=== PATIENT | female | born 1975 | race Caucasian/White ===

== ENCOUNTER 2018-12-20 06:44 | Inpatient (IN) ==
[2018-12-13 12:24] LABS: Appearance,Urine CLEAR; Bacteria,Urine 0 /hpf (0); Bilirubin,Urine NEG (NEG); Color,Urine YELLOW; Culture Indicated,Urine NO; Glucose,Urine (UA) NEGATIVE (NEG); Ketones,Urine NEG (NEG); Leukocyte Esterase,Urine NEG /uL (NEG); Nitrate,Urine NEG (NEG); Protein,Urine NEG (NEG); Urine Blood >=1.0 mg/dL (<0.03); Urine RBC 52 /hpf (0-1); Urine Squamous Epithelial Cell 0 /hpf (0-4); Urine WBC 1 /hpf (0-4); Urobilinogen,Urine NEG (NEG)
[2018-12-13 12:49] LABS: Basophils # (Auto) 0 K/mcL (0.0-0.3); Basophils % (Auto) 0.5 % (0.0-2.0); Eosinophils # (Auto) 0 K/mcL (0.0-0.7); Eosinophils % (Auto) 0.7 % (0.0-7.0); Granulocytes % (Auto) 52.3 % (38.0-78.0); Hematocrit 36.9 % (36.0-48.0); Hemoglobin 12.4 g/dL (12.0-15.0); Lymphocytes # (Auto) 1.8 K/mcL (1.5-4.8); Lymphocytes % (Auto) 37.4 % (15.5-49.0); Mean Corpuscular HGB Conc 33.6 g/dL (31.0-36.0); Mean Platelet Volume 7.7 fL (7.4-10.4); Monocytes # (Auto) 0.4 K/mcL (0.1-0.9); Monocytes % (Auto) 9.1 % (1.0-12.0); Platelet Count 273 K/mcL (140-440); Red Cell Distribution Width 12.4 % (11.5-14.5); WBC 4.9 K/mcL (4.5-11.0)
[2018-12-13 13:07] LABS: Blood Urea Nitrogen 16 mg/dl (6-20); Calcium 8.5 mg/dl (8.6-10.4); Carbon Dioxide 23 mmol/L (22-30); Chloride 104 mmol/L (96-108); Glomerular Filtration Rate 118; Glucose 90 mg/dL (70-105); Potassium 4.5 mmol/L (3.3-5.1); Sodium 137 mmol/L (133-145)
[2018-12-13 13:53] LABS: Estimated Average Glucose(eAG) 91 mg/dL; Hemoglobin A1C 4.8 % HGB (4.0-6.0)
[~2018-12-20 06:44] MED LIST: 0.9 % SODIUM CHLORIDE 9 ML, KETOROLAC 30 MG, ROPIVACAINE HCL/PF 49.5 ML, EPINEPHrine 0.... IJ SCH; CELECOXIB 200 MG CAPSULE PO SCH; PREGABALIN 75 MG CAPSULE PO SCH; ceFAZolin 2 GM in DEXTROSE 5% IN WATER 50 ML IV SCH; oxyCODONE 10 MG TAB.ER.12H PO SCH
[2018-12-20] MEDS ORDERED: PHENYLEPHRINE 10 MG/ML VIAL IV ONE (11:57)
[2018-12-20] MEDS ORDERED: MIDAZOLAM 2 MG/2 ML VIAL IV ONE (11:57)
[2018-12-20] MEDS ORDERED: PROPOFOL 200 MG/20 ML VIAL IV ONE (11:57)
[2018-12-20] MEDS ORDERED: DEXAMETHASONE 10 MG/ML VIAL IV ONE (11:57)
[2018-12-20] MEDS ORDERED: ROPIVACAINE HCL/PF 20 ML VIAL IJ ONE (11:57)
[2018-12-20] MEDS ORDERED: KETAMINE 100 MG/ML ML IV ONE (11:57)
[2018-12-20] MEDS ORDERED: LIDOCAINE HCL/PF 100 MG/5 ML SYRINGE IV ONE (11:57)
[2018-12-20] MEDS ORDERED: TRANEXAMIC ACID 1,000 MG/10 ML VIAL IV ONE ×2 (11:57→13:09)
[2018-12-20] MEDS ORDERED: GLYCOPYRROLATE 0.2 MG/ML VIAL IV ONE (11:57)
[2018-12-20] MEDS ORDERED: ONDANSETRON 4 MG/2 ML VIAL IV ONE (11:57)
[2018-12-20] MEDS ORDERED: BENZOCAINE/MENTHOL 1 LOZENGE PO PRN (13:09)
[2018-12-20] MEDS ORDERED: BISACODYL 10 MG SUPP.RECT PR PRN (13:09)
[2018-12-20] MEDS ORDERED: POLYETHYLENE GLYCOL 3350 17 GM PACKET PO PRN (13:09)
[2018-12-20] MEDS ORDERED: MAGNESIUM HYDROXIDE 30 ML ORAL.SUSP PO PRN (13:09)
[2018-12-20] MEDS ORDERED: FLEETS ADULT ENEMA PR PRN (13:09)
[2018-12-20] MEDS ORDERED: ONDANSETRON 4 MG/2 ML VIAL IV PRN ×2 (13:09→13:10)
[2018-12-20] MEDS ORDERED: HYDROmorphone 2 MG/ML VIAL IV PRN ×2 (13:09→13:10)
--- NOTE | 2018-12-20 13:09 | Brief Operative Note ---
Date of procedure: 12/20/18 Pre-op diagnosis: Right knee DJD Post-op diagnosis: same Procedure: Right robotic assisted total knee arthroplasty Grafts/Implants: Yes ([place] Triathlon CR 3 femur, 3 tibia, 10mm insert, 33 patella) Anesthesia: spinal, GLMA Findings: severe patellofemoral arthritis with maltracking Complications: none Surgeon: Chalo Headley Auto Glass Technician: Carrington Mckinnon Estimated blood loss (cc): 30 Specimens Removed/Pathology: none sent Condition: stable Disposition: PACU
[2018-12-20] MEDS ORDERED: diphenhydrAMINE 50 MG/ML VIAL IV PRN (13:10)
[2018-12-20] MEDS ORDERED: METOPROLOL TARTRATE 5 MG/5 ML VIAL IV PRN (13:10)
[2018-12-20] MEDS ORDERED: ATROPINE SULFATE 0.4 MG/ML VIAL IV PRN (13:10)
[2018-12-20] MEDS ORDERED: NALOXONE HCL 0.4 MG/ML VIAL IV PRN (13:10)
[2018-12-20] MEDS ORDERED: METHOCARBAMOL 1,000 MG/10 ML VIAL IV PRN (13:10)
[2018-12-20] MEDS ORDERED: ePHEDrine 50 MG/ML AMPUL IV PRN (13:10)
[2018-12-20] MEDS ORDERED: PROMETHAZINE 25 MG/ML VIAL IV PRN (13:10)
[2018-12-20] MEDS ORDERED: FLUMAZENIL 0.1 MG/ML ML IV PRN (13:10)
[2018-12-20] MEDS ORDERED: ACETAMINOPHEN 1,000 MG/100 ML BOTTLE IV ONE (13:10)
[2018-12-20] MEDS ORDERED: fentaNYL 100 MCG/2 ML VIAL IV PRN (13:10)
[2018-12-20] MEDS ORDERED: MEPERIDINE 25 MG/ML SYRINGE IV PRN (13:10)
[2018-12-20] MEDS ORDERED: IPRATROPIUM/ALBUTEROL 3 ML AMPUL.NEB NEB PRN (13:10)
[2018-12-20] MEDS ORDERED: LACTATED RINGERS 1,000 ML IV SCH (13:15)
--- NOTE | 2018-12-20 14:04 | Operative Note ---
DATE OF OPERATION: 12/20/2018 PREOPERATIVE DIAGNOSIS: Right knee severe osteoarthritis. POSTOPERATIVE DIAGNOSIS: Right knee severe osteoarthritis. PROCEDURE PERFORMED: Right robotic-assisted total knee arthroplasty placing a [place] Triathlon size 3 cruciate retaining femoral component, size 3 tibial baseplate, X3 tibial insert with a 33 mm patellar button. SURGEON: Chalo Headley MD PREPARATOR: Zak Mckinnon PA-C. The PA's assistance was required for the safe and efficient completion of the entire case. This provider's expertise and technical skill were required throughout the case. The PA assisted with preoperative coordination, intraoperative retraction, wound closure, dressing and splint application, as well as postoperative documentation and care coordination. ANESTHESIA: Spinal plus general. DRAINS: None. SPECIMENS: Bone cuts, which were discarded. BLOOD LOSS: 30 mL COMPLICATIONS: None. POSTOPERATIVE CONDITION: Stable. INDICATIONS FOR SURGERY: This is a 43-year-old female who has a remote history of trauma to her knee with a ligament reconstruction and multiple surgeries. She has had progressively worsening right knee pain making it unable for her to walk any significant distance. This was unresponsive to conservative treatment including injections and anti-inflammatories. FINDINGS AT SURGERY: She had severe [id number] patellofemoral osteoarthritis with patellar maltracking. Post-implantation showed satisfactory limb alignment, patellar tracking, and joint stability. PROCEDURE IN DETAIL: The patient had been seen preoperatively and informed consent had been obtained after discussion of risks and benefits of surgery. Risks including, but not limited to, bleeding; infection, possibly requiring implant removal and prolonged IV antibiotics; injury to nerves, blood vessels, other surrounding structures; anesthetic risks; incomplete or no resolution of symptoms; stiffness; swelling; instability; pain; DVT and pulmonary embolus risks; and the possibility of needing further revision surgery, this being particularly high given her young age. She understood these risks and wished to proceed. Correct operative site was marked. The patient was given spinal anesthesia. She was then taken to the operating room and LMA general given. The right lower extremity was carefully prepped and draped in normal sterile fashion and a timeout was performed verifying patient name, operative site, and plan. Esmarch was used to exsanguinate the extremity and tourniquet was inflated. Her previous scar was far medial so this did not afford us adequate exposure, so we went and after placing Ioban used a midline incision with a scalpel through skin and subcutaneous tissue. IrriSept was irrigated and then a medial parapatellar arthrotomy made. Subperiosteal exposure was done of the anterior medial proximal tibia. Anterior horns of the menisci were removed. ACL was transected. Femoral and tibial checkpoints were placed. Two stab incisions were made over the femur and two over the tibia and bicortical pins placed, and the arrays were connected. Hip center of rotation was verified and then a green probe used to identify the medial and lateral malleolus and did double checks of our checkpoints. Blue probe was then used to do our mapping. A rongeur was used to remove osteophytes and then spoons were used at 90 degrees and 15 degrees to get our flexion, extension gaps. She was loose medial and tight lateral. We did end up doing I believe 2 degrees of valgus on the tibia and I believe 1 or so of valgus on the femur. We did eventually end up with 17 mm gaps laterally in flexion and extension and medially in extension with 18 mm gap in flexion. We then verified our patellar tracking and then went ahead and used the robotic arm to make our bone cuts. We then sized the tibia to a 3, which was externally rotated as bone coverage would allow. We pinned this into place and used a boss reamer and keel punch to prepare and then a keeled tibial trial was placed. Femur was elevated and a curved osteotome used to remove posterior osteophytes and then a femoral trial was placed. This was pinned into place and the peg holes drilled. We then used a 9 insert trial which was able to be put in without too much difficulty. We checked our extension and we were about 5 to 7 degrees short of full; however, I could correct it down to full. We then measured her patella. Freehand resection was done leaving us with 12 mm thick. We sized her to a 33, which was medialized maximally and then holes were drilled and a patellar trial placed. Lateral facetectomy was performed. We then checked our patellar tracking and it tracked well without any tilt or subluxation. We removed trial implants. Definitive implants were opened except for the tibial insert. We irrigated the joint with IrriSept, after the trials were removed. Antibiotic cement was mixed. We then after a minute pulse lavaged copiously with saline and then used the CO2 gun to clean and dry the cancellous bone surfaces. We cemented the tibia and removed excess cement. We cemented the femur and removed excess cement and then the 9 insert trial was placed. The knee was taken into extension. The patellar button was cemented. We removed our checkpoints and our pins. We filled the joint with IrriSept while cement hardened. We did remove any excess cement prior to filling the joint with IrriSept. After waiting several minutes, we pulse lavaged and then filled with IrriSept again until our cement fully hardened. We then flexed the knee up. We felt like we could increase our poly thickness little bit, so we removed the 9 and opened a 10 mm insert. We injected pain cocktail while the IrriSept was in the joint and the cement was hardening. We injected the cocktail in the pericapsular and subcutaneous tissues. Once the cement had hardened and we removed the trial insert, we injected the rest the pain cocktail in the posterior capsule. We irrigated the tray with IrriSept and then impacted the 10 insert. The knee was taken into extension and we filled the joint with IrriSept, after a minute pulse lavaged with saline. The knee was then taken into 45 degrees of flexion. Interrupted #2 FiberWire [id number] were used around the superior quadrant of the patella, interrupted #1 Vicryl [id number] around the inferior quadrant, running #1 Vicryl was used for patellar tendon and quad tendon. Final IrriSept irrigation was done, after a minute final pulse lavage, and a 2-0 Monocryl was used for subcutaneous and venancio for skin. Xeroform sterile dressings were applied. The patient was then awakened, extubated, and transferred to recovery in stable condition. STEPHON:[email or web address] Job ID: [id number] Doc ID: [id number] Chalo Headley MD
--- NOTE | 2018-12-20 14:19 | XRay Report ---
CLINICAL INFORMATION: Post-op total knee. COMPARISON: Preoperative film - 03/13/2010 FINDINGS: Total knee prostheses is anatomically aligned. No osseous abnormality. Periarticular soft tissue swelling and gas seen as expected. IMPRESSION: Negative Interpreted and Authenticated by: Richie Liao 12/20/18
[2018-12-20] MEDS: 0.9 % SODIUM CHLORIDE 10 ML SYRINGE IV SCH ×2 (14:36→23:52)
[2018-12-20] MEDS: 0.9 % SODIUM CHLORIDE 1,000 ML IV SCH (14:46)
[2018-12-20] MEDS: oxyCODONE/APAP 5/325MG TABLET PO PRN ×2 (15:19→21:08)
[2018-12-20] MEDS: KETOROLAC 30 MG/ML VIAL IV SCH ×2 (17:58→23:52)
[2018-12-20] MEDS: ceFAZolin 1 GM VIAL IV SCH (19:24)
[2018-12-20] MEDS ORDERED: SENNOSIDES 1 TABLET PO SCH (21:00)
[2018-12-20] MEDS: DOCUSATE SODIUM 100 MG CAPSULE PO SCH (22:03)
[2018-12-20] MEDS ORDERED: ASPIRIN 81 MG TAB.CHEW ONE (22:10)
[2018-12-20] MEDS: ASPIRIN 325 MG ENTERIC COATED TABLET PO SCH (22:12)
[2018-12-21] MEDS: 0.9 % SODIUM CHLORIDE 1,000 ML IV SCH (00:20)
[2018-12-21] MEDS: ceFAZolin 1 GM VIAL IV SCH (03:11)
[2018-12-21] MEDS: oxyCODONE/APAP 5/325MG TABLET PO PRN ×3 (03:25→11:26)
[2018-12-21] MEDS: KETOROLAC 30 MG/ML VIAL IV SCH ×2 (05:48→11:25)
[2018-12-21] MEDS: 0.9 % SODIUM CHLORIDE 10 ML SYRINGE IV SCH (05:48)
--- NOTE | 2018-12-21 08:05 | Discharge Summary ---
Providers - Providers Patient information: Note initiated : 12/21/18 at 8:02 am Service Date, if different from initiated Date: [] Patient: Mykel Epps 43 y/o F admitted on 12/20/18 for Right Total Knee Arthroplasty Phill. Chief Complaint: [] Discharge date: 12/21/18 Hospitalization Hospital course: Pt was admitted for a R TKA; underwent the procedure on the day of admission. Pt spent one night on the floor for IV pain meds, IV abx, and PT. Pt will take ASA for DVT prophylaxis. Will f/u in 2 weeks and attend out-pt PT. Discharge diagnosis: R Knee OA Exam - Exam Clean and dry: Yes Weight bearing status: as tolerated Ortho Discharge - TKA - Patient Instructions Diet: Regular Diet Activity: activity as tolerated Total Knee Protocol: For Total Knee: Start ROM PURVI with stationary bike or rocking chair. Work on gaining full extension of knee. Posterior dislocation precautions provided. Hip abductor strengthening and gait training instructions provided. Apply Cryocuff as instructed. Dressing Care: May shower in 2 days - Follow Up Plan Follow Up Appointments: Carrington Mckinnon PA-C [Physician [employer] Professor] - 01/04/19 11:20 am Disposition: Home, Self-Care Prognosis: Good Rehab Potential: Good Overall status at discharge: patient is progressing back to baseline - Orders For Discharge Prescriptions: Aspirin [Ecotrin] 81 mg PO BID #30 tab.ec HYDROcodone/ACETAMINOPHEN [[place] 10-325 Tablet] 1 - 2 tab PO Q4-6HP PRN #75 tab PRN Reason: Pain Pending Studies Resuscitation Status Full Code Diet Regular Diet Start TueDec 20 1310 Aspirin (Ecotrin) 81 mg PO BID [facility] Last Admin: 12/20/18 22:12 Dose: 81 mg Documented by: GIANCARLO Docusate Sodium (Colace) 100 mg PO BID [facility] Last Admin: 12/20/18 22:03 Dose: 100 mg Documented by: GIANCARLO Sodium Chloride (Sodium Chloride 0.9%) 1,000 mls @ 100 mls/hr IV .Q10H [facility] Last Admin: 12/21/18 00:20 Dose: 100 mls/hr Documented by: Infusion: 12/21/18 00:20 Dose: 100 mls/hr Documented by: Admin: 12/20/18 14:46 Dose: 100 mls/hr Documented by: DENICE Ketorolac Tromethamine (Toradol) 30 mg IV Q6 [facility] Stop: 12/22/18 12:01 Last Admin: 12/21/18 05:48 Dose: 30 mg Documented by: Admin: 12/20/18 23:52 Dose: 30 mg Documented by: Admin: 12/20/18 17:58 Dose: 30 mg Documented by: DENICE Oxycodone/Acetaminophen (Percocet 5-325 Mg) 0 tab PO Q4HP PRN PRN Reason: PAIN LEVEL 3-6 Last Admin: 12/21/18 07:23 Dose: 2 tab Documented by: [email or web address] Admin: 12/21/18 03:25 Dose: 2 tab Documented by: Admin: 12/20/18 21:08 Dose: 2 tab Documented by: Admin: 12/20/18 15:19 Dose: 2 tab Documented by: DENICE Senna (Senokot) 2 tab PO HS [facility] Last Admin: 12/20/18 22:03 Dose: 2 tab Documented by: GIANCARLO Sodium Chloride (Saline Flush) 10 ml IV Q8 [facility] Last Admin: 12/21/18 05:48 Dose: 10 ml Documented by: Admin: 12/20/18 23:52 Dose: 10 ml Documented by: Admin: 12/20/18 14:36 Dose: Not Given Documented by: DENICE Shift Summary 12/21/18 05:29 Shift Summary by Radha Burnett AA&O x4; BP and HR and been soft in high 80's to 90's over 40's to 70's and HR in 50's. Pt reports a history of dizziness upon arising out of bed so may be chronically hypotensive. Pt ambulated in the [place] several times around midnight with SBA and FWW without an increase in knee pain; ice applied and prn Percocet given 2 tabs twice which managed pain along with scheduled IV toradol; no S/S of bleeding at surgical site; CSM WNL on right with strong pedal pulse on right dorsal foot. Voiding WNL, abdomin soft with positive bowel sounds; will update at bedside. Initialized on 12/21/18 05:29 - END OF NOTE
[2018-12-21] MEDS: DOCUSATE SODIUM 100 MG CAPSULE PO SCH (08:46)
[2018-12-21] MEDS ORDERED: SERTRALINE 50 MG TABLET PO SCH (09:00)
[2018-12-21] MEDS ORDERED: ASPIRIN 81 MG TAB.CHEW PO SCH (09:15)
[2018-12-21] MEDS: ASPIRIN 325 MG ENTERIC COATED TABLET PO SCH (09:22)
== END 2018-12-21 13:05 | disposition home or self-care (01) | DRG 470 ==
LOC: MEDSUR 06:44
PROVIDERS: ADMIT Orthopaedic Surgery; ATTEND Orthopaedic Surgery